=== PATIENT | female | born 1955 | race Caucasian/White ===

== ENCOUNTER 2017-07-15 09:46 | Emergency (ER) | payer SELFPAY ==
[~2017-07-15] VITALS: Ht 152.4 cm; Wt 80.0 kg
[2017-07-15 09:50] VITALS: BP 128/79; PULSE 65; RESP 14; TEMP 98; O2SAT 96
[2017-07-15] MEDS ORDERED: CEPH-460 PO (10:07)
[2017-07-15] MEDS ORDERED: MUPI2OIN TOPICAL (10:07)
--- NOTE | 2017-07-15 10:07 | PD ---
HPI Chief Complaint: Skin Problem Time Seen by Provider: 09:57 Travel History International Travel<30 days: No Contact w/Intl Traveler<30days: No Traveled to known affect area: No History of Present Illness HPI Patient is a 62-year-old female presenting to emergency for evaluation of a skin rash to her forearms bilaterally. Patient states it started 1 month ago, she reports itching and spreading. She denies any fever, chills, nausea, vomiting, headache, shortness of breath. Patient has been applying Neosporin and peroxide to the scabs. She states that she believes it started out as a bug bite. She denies any significant past medical history. She denies any pain. [facility] Past Medical History Medical History: Denies Significant Hx ?: Not Family History Family History: Negative Social History Alcohol Use: No Tobacco Use: No Substance Use: No Allergies-Medications (Allergen,Severity, Reaction): Coded Allergies: acetaminophen (Verified Allergy, Unknown, 07/15/17) morphine (Verified Allergy, Unknown, 07/15/17) Review of Systems Except as stated in HPI: all other systems reviewed are Neg Skin: Positive Rash, Positive Itching Physical Exam Narrative GENERAL: Well-developed, well-nourished, alert female. Resting comfortably in no acute distress. SKIN: Warm and dry. Several scabbed lesions to bilateral forearms, a few of the lesions are excoriated secondary to scratching. There is no surrounding induration, no warmth, no exudate noted. HEAD: Normocephalic. EYES: No scleral icterus. No injection or drainage. NECK: Supple, trachea midline. No JVD or lymphadenopathy. CARDIOVASCULAR: Regular rate and rhythm without murmurs, gallops, or rubs. RESPIRATORY: Breath sounds equal bilaterally. No accessory muscle use. GASTROINTESTINAL: Abdomen soft, non-tender, nondistended. MUSCULOSKELETAL: No cyanosis, or edema. BACK: Nontender without obvious deformity. No CVA tenderness. Data Data Last Documented VS Vital Signs Date Time Temp Pulse Resp B/P (MAP) Pulse Ox O2 Delivery O2 Flow Rate FiO2 07/15/17 09:50 98.0 65 14 128/79 (95) 96 MDM Medical Decision Making Medical Screen Exam Complete: Yes Emergency Medical Condition: Yes Interpretation(s) Vital Signs Date Time Temp Pulse Resp B/P (MAP) Pulse Ox O2 Delivery O2 Flow Rate FiO2 07/15/17 09:50 98.0 65 14 128/79 (09) 96 Differential Diagnosis Impetigo versus cellulitis versus contact dermatitis versus folliculitis versus scabies versus other Narrative Course Patient is a 62-year-old female presenting with 1 month of lesions to her bilateral forearms. Patient's vital signs are stable, there is no sign of systemic infection. Appears consistent with impetigo. Several of the scabs are crusted. Patient will be provided with a prescription for Keflex and mupirocin. She was encouraged to only wash with soap and water. She was advised that the peroxide will debride the wounds and delay healing. She was encouraged to keep any open areas clean and dry, covered with a Band-Aid or nonocclusive dressing. She was encouraged to follow-up for any new or worsening symptoms. Patient verbalized understanding of instructions. Patient was advised that Keflex is free at [facility] Patient is stable for discharge. Diagnosis Primary Impression: Impetigo Referrals: [facility] Patient Instructions: General Instructions, Impetigo (ED) Additional Instructions: Complete full course of antibiotics as prescribed Wash area with soap and water only, do not use peroxide Apply topical antibiotic ointment as directed Keep any open areas covered with Band-Aid Return to emergency department for any new or worsening symptoms Follow-up at [facility] or with a primary doctor Med/Other Pt SpecificInfo: Prescription(s) given Scripts Mupirocin Topical (Mupirocin Topical) 2 % Oint 1 APPLIC TOPICAL BID for Mgmt Bacterial Infection, #22 GM 0 Refills Prov: Cara Riggins 07/15/17 Cephalexin (Keflex) 500 Mg Cap 500 MG PO Q12H for Infection, #20 CAP 0 Refills Prov: Cara Riggins 07/15/17 Disposition: 01 DISCHARGE HOME Condition: Stable Cara Riggins Jul 15, 2017 10:07
== END 2017-07-15 10:32 | disposition home or self-care (01) ==
LOC: NEPK 09:46
DX: L01.00 Impetigo, unspecified (principal)
CPT/HCPCS: 99284